=== PATIENT | male | born 1955 | race Caucasian/White ===

== ENCOUNTER 2021-12-14 16:54 | Observation (INO) ==
[2021-12-14 18:59] LABS: BASOPHILS % (AUTO) 0.3 % (0.2-1.0); EOSINOPHILS # (AUTO) 0.1 x10^3/uL (0.0-0.2); EOSINOPHILS % (AUTO) 1.7 % (0.9-2.9); HEMATOCRIT 44.9 % (42.0-54.0); HEMOGLOBIN 14.8 g/dL (13.5-18.0); LYMPHOCYTES # (AUTO) 0.9 X10^3/uL (1.3-2.9); LYMPHOCYTES % (AUTO) 11.8 % (21.0-51.0); MEAN CORPUSCULAR HEMOGLOBIN 27.3 pg (27.0-34.0); MEAN CORPUSCULAR VOLUME 82.8 fL (80.0-100.0); MEAN PLATELET VOLUME 9.7 fL (7.4-11.0); MONOCYTES # (AUTO) 0.7 x10^3/uL (0.3-0.8); NEUTROPHILS % (AUTO) 77.2 % (42.0-75.0); RED BLOOD COUNT 5.42 X10^6/uL (4.7-6.0); RED CELL DISTRIBUTION WIDTH 17.3 % (11.6-16.5); WHITE BLOOD COUNT 7.8 X10^3/uL (3.6-10.0)
[2021-12-14 19:09] LABS: ALANINE AMINOTRANSFERASE 24 Units/L (12-78); ALBUMIN 3.3 g/dL (3.4-5.0); ALKALINE PHOSPHATASE 73 Units/L (46-116); ASPARTATE AMINO TRANSFERASE 15 Units/L (15-37); BLOOD UREA NITROGEN 19 mg/dL (7-18); CALCIUM 8.3 mg/dL (8.5-10.1); CARBON DIOXIDE 25.9 mmol/L (21-32); CHLORIDE 105 mmol/L (98-107); COR CA(FOR HYPOALB) 8.9 mg/dL (8.5-10.1); CREATININE 1.34 mg/dL (0.70-1.30); SODIUM 140 mmol/L (136-145); TOTAL PROTEIN 6.1 g/dL (6.4-8.2); eGFR NON BLACK RACES 57 (>60)
[2021-12-14 19:13] LABS: GIANT PLATELET RARE; PLATELET MORPHOLOGY COMMENT ABNORMAL (NORMAL)
--- NOTE | 2021-12-14 19:47 | DR.GENAD ---
HPI Time Seen Time Seen by Provider: 12/14/21 19:21 PCP Primary Care Physician: Dr Montelongo HPI Comment HPI Comment: A 66 y/o male presenting to the ED for evaluation worsening pedal edema and DACOSTA. This has been going on for some time and he on diuretics. He saw his PCP yesterday and he was asked to double his Lasix dose. There was conversation that if not better by 12/29/2021, he may be hospitalized for diuresis. Complaint/Symptoms Chief Complaint:: Pt here with edema to lower extremities that started earlier today; pt said he was told by Dr Montelongo yesterday to increase his lasix to 40mg/day and drink 1000ml/day but he cannot drink that much and now it is causing his legs to swell and making him feel SOB. COVID-19 Coronavirus risk:travel/contact w/high risk person: No Has patient experienced Coronavirus symptoms: Yes Coronavirus symptoms experienced: Shortness of Breath Nurses notes reviewed Nurses Notes Review: Yes Source History Provided: Patient Mode of Arrival Mode of Arrival: Ambulatory Timing Onset of Chief Complaint: 12/14/21 Came on: Gradually Duration Duration: Constant PMH PMH Past Medical History: Yes Past Medical History: CHF and Hypertension Past Medical History Comment: atrial fibrillation Past Surgical History: Yes Past Surgical History Comment: pacemaker Family History History of Family Medical Conditions: Yes Family Medical History: Hypertension Social History Alcohol Use: None Do you use any recreational Drugs:: No Lives With: Spouse Lives Where: Home Travel Risk Coronavirus risk:travel/contact w/high risk person: No Has patient experienced Coronavirus symptoms: Yes Coronavirus symptoms experienced: Shortness of Breath Infectious screening In the last 2 months have you had wt loss of >10#?: NO Have you had fever, night sweats or hemotysis?: No Have you traveled outside the country in the last 6 months?: No Isolation: Standard ROS Review of Systems Constitutional: No Symptoms Reported Eyes: No Symptoms Reported ENTM: No Symptoms Reported Respiratoy: Short of Breath Cardiovascular: No Symptoms Reported Gastrointestinal/Abdominal: No Symptoms Reported Neurological: No Symptoms Reported Musculoskeletal: No Symptoms Reported Integumentary: No Symptoms Reported Hematologic/Lymphatic: No Symptoms Reported Endocrine: No Symptoms Reported Psychiatric: No Symptoms Reported PE Vital Signs Vitals: Temperature 96.6 F Pulse Rate 112 Respiratory Rate 21 Blood Pressure [Left Arm] 128/92 Blood Pressure 152/105 O2 Sat by Pulse Oximetry 98 General Limitations: No Limitations General Appearance: Alert and In No Apparent Distress Head Head Exam: Normal Inspection, Atraumatic and Normocephalic Eyes Eye exam: Normal Appearance and EOMI ENT ENT Exam: Normal Exam, Normal Oropharynx and Normal External Ear Exam Neck Neck Exam: Normal Inspection and Full ROM Chest Chest Inspection: Normal Inspection, Symmetric Chest Wall Rise and Other ( A PPM inferior to Lt. distal clavicle.) Respiratory Respiratory Exam: Bilateral: Rales (mild) Cardiovascular Cardiovascular Exam: Irregular Rhythm, Normal Heart Sounds, +S1 and +S2 Abdominal Exam Abdominal Exam: Normal Inspection, Normal Bowel Sounds and Soft Extremities Extremities Exam: Full ROM and Edema (2+); negative Normal Inspection, Tende rness, Normal Capillary Refill, Joint Swelling and Calf Tenderness Back Back Exam: Normal Inspection and Full ROM Neurologic Neurological Exam: Alert and Oriented X3 Psychiatric Psychiatric Exam: Normal Affect and Normal Mood Skin Skin Exam: Intact COURSE Treatment Treatment: He's voided 700 ml of urine in response to fluid challenge. Reevaluation 1st: Improved Education/Counseling Education/Counseling: Patient, Family, Education and Counseling Educated On: Treatment, Diagnosis, Prognosis and Needs for Follow Up ROR Labs Reviewed Laboratory Results Reviewed?: Yes Result Diagrams: 12/14/21 18:45 12/14/21 18:45 Laboratory: WBC 7.8 X10^3/uL (3.6-10.0) 12/14/21 18:45 RBC 5.42 X10^6/uL (4.7-6.0) 12/14/21 18:45 Hgb 14.8 g/dL (13.5-18.0) 12/14/21 18:45 Hct 44.9 % (42.0-54.0) 12/14/21 18:45 MCV 82.8 fL (80.0-100.0) 12/14/21 18:45 MCH 27.3 pg (27.0-34.0) 12/14/21 18:45 MCHC 33.0 g/dL (33.0-35.0) 12/14/21 18:45 RDW 17.3 % (11.6-16.5) H 12/14/21 18:45 Plt Count 233 X10^3/uL (150.0-450.0) 12/14/21 18:45 Plt Count Comment Adequate (ADEQUATE) 12/14/21 18:45 MPV 9.7 fL (7.4-11.0) 12/14/21 18:45 Neut % (Auto) 77.2 % (42.0-75.0) H 12/14/21 18:45 Lymph % (Auto) 11.8 % (21.0-51.0) L 12/14/21 18:45 [place] % (Auto) 9.0 % (0.0-13.0) 12/14/21 18:45 Eos % (Auto) 1.7 % (0.9-2.9) 12/14/21 18:45 Baso % (Auto) 0.3 % (0.2-1.0) 12/14/21 18:45 Neut # (Auto) 6.0 x10^3/uL (2.2-4.8) H 12/14/21 18:45 Lymph # (Auto) 0.9 X10^3/uL (1.3-2.9) L 12/14/21 18:45 [place] # (Auto) 0.7 x10^3/uL (0.3-0.8) 12/14/21 18:45 Eos # (Auto) 0.1 x10^3/uL (0.0-0.2) 12/14/21 18:45 Baso # (Auto) 0.0 X10^3/uL (0.0-0.1) 12/14/21 18:45 Absolute Nucleated RBC 0.1 /100WBC 12/14/21 18:45 Giant Platelets Rare 12/14/21 18:45 Plt Morphology Comment Abnormal (NORMAL) 12/14/21 18:45 RBC Morphology Normal (NORMAL) 12/14/21 18:45 Sodium 140 mmol/L (136-145) 12/14/21 18:45 Corrected Sodium TNP 12/14/21 18:45 Potassium 4.0 mmol/L (3.5-5.1) 12/14/21 18:45 Chloride 105 mmol/L (98-107) 12/14/21 18:45 Carbon Dioxide 25.9 mmol/L (21-32) 12/14/21 18:45 BUN 19 mg/dL (7-18) H 12/14/21 18:45 Creatinine 1.34 mg/dL (0.70-1.30) H 12/14/21 18:45 Est GFR (MDRD) Af Amer > 60 (>60) 12/14/21 18:45 Est GFR (MDRD) Non-Af 57 (>60) L 12/14/21 18:45 Glucose 92 mg/dL (65-99) 12/14/21 18:45 Calcium 8.3 mg/dL (8.5-10.1) L 12/14/21 18:45 Corrected Calcium 8.9 mg/dL (8.5-10.1) 12/14/21 18:45 Total Bilirubin 0.80 mg/dL (0.2-1.0) 12/14/21 18:45 AST 15 Units/L (15-37) 12/14/21 18:45 ALT 24 Units/L (12-78) 12/14/21 18:45 Alkaline Phosphatase 73 Units/L (46-116) 12/14/21 18:45 B-Natriuretic Peptide 776 pg/mL (0-79) H* 12/14/21 18:45 Total Protein 6.1 g/dL (6.4-8.2) L 12/14/21 18:45 Albumin 3.3 g/dL (3.4-5.0) L 12/14/21 18:45 Globulin 2.8 g/dL (2.5-4.5) 12/14/21 18:45 Albumin/Globulin Ratio 1.2 Ratio (1.1-2.1) 12/14/21 18:45 XRAY XRAY Interpreted by: Self X-ray Results: CXR: cardiomegaly, mild cephalization. A PPM present in Lt chest with leads into RV. Opioid Opioid Risk Tool Age (Jefry box if 16-45): No History of Preadolescent Sexual Abuse: No Total: 0 Total Score Risk Category: Low Risk Copyright: Marquis DONNELLY predicting aberrant behaviors Diagnosis Discharge Problem: Benign essential HTN, COPD (chronic obstructive pulmonary disease) with chronic bronchitis CHF exacerbation Qualifiers: Heart failure type: unspecified Qualified Code(s): I50.9 - Heart failure, unspecified Atrial fibrillation Qualifiers: Atrial fibrillation type: longstanding persistent Qualified Code(s): I48.11 - Longstanding persistent atrial fibrillation
[2021-12-14] MEDS ORDERED: LASIX IVP ONE ×2 (20:24→20:30)
[2021-12-14] MEDS ORDERED: LASIX ONE (20:30)
[2021-12-14] MEDS ORDERED: VITAMIN D (1.25MG) PO SCH (21:38)
[2021-12-14] MEDS ORDERED: CATAPRES TAB 0.1 MG PO PRN (21:38)
--- NOTE | 2021-12-14 21:56 | RAD ---
EXAM: CHEST X-RAYHISTORY: Edema in the lower extremities. Shortness of breath.TECHNIQUE: AP CXR dated December 14, 2021 at 6:53 PM.COMPARISON: CXR dated May 05, 2021.FINDINGS:There is a left anterior chest wall subclavian cardiac pacer with intact pacer wires to the right atrium and right ventricle. There is evidence for moderate cardiomegaly.The pulmonary vascularity and interstitial markings are diffusely prominent, particularly in the left midlung lower lung rucker, consistent with minimal CHF or volume overload in the appropriate clinical setting; DDx includes residual parenchymal fibrosis/scarring (from previously seen infiltrate in this region), and mild bronchitis or bronchopneumonia in the appropriate clinical setting.There is no gross focal lung consolidation, pleural effusion, or pneumothorax seen. The visualized bony structures are within normal limits.IMPRESSION:1. Findings consistent with minimal CHF or volume overload in the appropriate clinical setting; DDx includes residual parenchymal fibrosis/scarring (from previously seen infiltrate in this region), and mild bronchitis or bronchopneumonia in the appropriate clinical setting.2. Interval resolution of previously seen peripheral right lung infiltrate.3. Recommend clinical correlation and appropriate follow-up CXR evaluation to assess interval change as clinically warranted.Electronically signed by: Aung Lopez (Dec 14, 2021 21:54:33)
[2021-12-14 22:33] VITALS: BMI 31.6
[2021-12-14] MEDS ORDERED: PREVNAR 13 IM ONE (22:35)
[2021-12-14 22:39] LABS: BILIRUBIN,URINE NEGATIVE (NEGATIVE); BLOOD/HEMOGLOBIN,URINE NEGATIVE (NEGATIVE); GLUCOSE, URINE NEGATIVE (NEGATIVE); KETONES,URINE NEGATIVE (NEGATIVE); LEUKOCYTE ESTERASE ,URINE NEGATIVE (NEGATIVE); NITRITES,URINE NEGATIVE (NEGATIVE); PROTEIN,URINE NEGATIVE (NEGATIVE); UROBILINOGEN,URINE NORMAL (NORMAL)
[2021-12-14 22:42] LABS: APPEARANCE,URINE CLEAR (CLEAR); COLOR,URINE STRAW (YELLOW)
--- NOTE | 2021-12-15 05:30 | RAD ---
PROCEDURE: Chest X-ray 1 View .HISTORY: Dyspnea.TECHNIQUE: AP portable supine done at 4:56 a.m..COMPARISON: 12/14/2021.TECHNICAL QUALITY: Satisfactory .FINDINGS:Unchanged cardiomegaly with pacemaker on the left.Mediastinum and hilar regions show no masses or lymphadenopathy .Normal central vascularity .No pulmonary consolidation, masses, pleural fluid, or pneumothorax .No acute bony abnormality .IMPRESSION:Unchanged cardiomegaly with no other evidence of active disease.Electronically signed by: Shaun Jones (Dec 15, 2021 05:30:11)
[2021-12-15 05:49] LABS: BASOPHILS # (AUTO) 0.1 X10^3/uL (0.0-0.1); BASOPHILS % (AUTO) 0.9 % (0.2-1.0); EOSINOPHILS # (AUTO) 0.2 x10^3/uL (0.0-0.2); EOSINOPHILS % (AUTO) 3.1 % (0.9-2.9); HEMATOCRIT 42.1 % (42.0-54.0); HEMOGLOBIN 14.1 g/dL (13.5-18.0); LYMPHOCYTES # (AUTO) 1.3 X10^3/uL (1.3-2.9); LYMPHOCYTES % (AUTO) 17.8 % (21.0-51.0); MEAN CORPUSCULAR HEMOGLOBIN 27.3 pg (27.0-34.0); MEAN CORPUSCULAR HGB CONC 33.4 g/dL (33.0-35.0); MEAN CORPUSCULAR VOLUME 81.7 fL (80.0-100.0); MEAN PLATELET VOLUME 9.8 fL (7.4-11.0); MONOCYTES # (AUTO) 0.8 x10^3/uL (0.3-0.8); MONOCYTES % (AUTO) 11.2 % (0.0-13.0); NEUTROPHILS # (AUTO) 4.8 x10^3/uL (2.2-4.8); RED BLOOD COUNT 5.15 X10^6/uL (4.7-6.0); RED CELL DISTRIBUTION WIDTH 17.4 % (11.6-16.5); WHITE BLOOD COUNT 7.1 X10^3/uL (3.6-10.0)
[2021-12-15 06:01] LABS: ALANINE AMINOTRANSFERASE 19 Units/L (12-78); ALBUMIN 2.9 g/dL (3.4-5.0); ALKALINE PHOSPHATASE 67 Units/L (46-116); ASPARTATE AMINO TRANSFERASE 15 Units/L (15-37); BLOOD UREA NITROGEN 17 mg/dL (7-18); CARBON DIOXIDE 27.4 mmol/L (21-32); CHLORIDE 106 mmol/L (98-107); COR CA(FOR HYPOALB) 8.9 mg/dL (8.5-10.1); CREATININE 1.28 mg/dL (0.70-1.30); SODIUM 140 mmol/L (136-145); TOTAL PROTEIN 5.5 g/dL (6.4-8.2); eGFR NON BLACK RACES 60 (>60)
[2021-12-15] MEDS ORDERED: POTASSIUM CHLORIDE LIQ 20 MEQ UDC PO PRN ×2 (06:05→08:35)
[2021-12-15] MEDS ORDERED: K-RIDER 10 MEQ/NS 100 ML 10 MEQ/100 ML BAG IV PRN ×2 (06:05→08:35)
[2021-12-15] MEDS ORDERED: MICRO K EXTEN CAP 10 MEQ PO PRN ×2 (06:05→08:35)
[2021-12-15] MEDS ORDERED: KLOR-CON PO PRN ×2 (06:05→08:35)
[2021-12-15] MEDS ORDERED: POTASSIUM CHL 60 MEQ/NS 0.45% 500 ML IV PRN ×2 (06:05→08:35)
[2021-12-15] MEDS ORDERED: POTASSIUM CHL 40 MEQ/NS 0.45% 500 ML IV PRN ×2 (06:05→08:35)
[2021-12-15] MEDS ORDERED: K-DUR TAB 20 MEQ PO PRN ×2 (06:05→08:35)
[2021-12-15] MEDS: LASIX IVP SCH ×2 (10:07→16:34)
[2021-12-15] MEDS: COZAAR PO SCH (10:11)
[2021-12-15] MEDS: BETAPACE AF PO SCH ×2 (10:11→21:46)
[2021-12-15] MEDS: ELIQUIS PO SCH ×2 (10:11→21:46)
[2021-12-15] MEDS: ALBUMIN HUMAN 25%- 100 ML 100 ML IV SCH (10:11)
[2021-12-15] MEDS ORDERED: NS 100 ML IV 100 ML ONE (10:16)
--- NOTE | 2021-12-15 11:12 | DR.H&P ---
H&P - History & Physical for Day of: H&P Date: 12/14/21 - Chief Complaint Chief Complaint: SOB, LOWER EXTREMITY SWELLING - History of Present Illness History of Present Illness: IS A 66 YEAR OLD PATIENT OF OURS. HE PRESENTED TO THE ER WITH COMPLAINTS OF WORSENING SHORTNESS OF BREATH AND LOWER EXTREMITY SWELLING. HE WAS SEEN IN THE OFFICE ON SUNDAY AND WAS INSTRUCTED TO INCREASE LASIX TO 40MG BID. HE DENIES IMPROVEMENT IN SYMPTOMS SINCE INCREASING LASIX. EXAMINATION REVEALED 3+ PITTING EDEMA TO BILATERAL LOWER EXTREMITIES. AUSCULTATION OF LUNGS REVEALED SCATTERED LUNG SOUNDS THROUGHOUT. HIS PMH INCLUDES CHF, HTN, COPD, A-FIB, AND PACEMAKER. ON ARRIVAL TO THE HOSPTIAL, VITALS WERE 96.6-112-21-98%-152/95. LABS WERE OBTAINED. WBC 7.8, HGB 14.8, HCT 44.9, SODIUM 140, POTASSIUM 4.0, BUN 19, CREATININE 1.34, CALCIUM 8.3, GLUCOSE 92, AST 15, ALT 24, ALK PHOS 73, BNP 776, TOTAL PROTEIN 6.1, ALBUMIN 3.3. A CHEST XRAY WAS OBTAINED AND REVEALED: 1. Findings consistent with minimal CHF or volume overload in the appropriate clinical setting; DDx includes residual parenchymal fibrosis/scarring (from previously seen infiltrate in this region), and mild bronchitis or bronchopneumonia in the appropriate clinical setting. 2. Interval resolution of previously seen peripheral right lung infiltrate. 3. Recommend clinical correlation and appropriate follow-up CXR evaluation to assess interval change as clinically warranted. IN THE ER, HE WAS GIVEN LASIX 60MG IV X 1 DOSE. HE WAS ADMITTED TO THE HOSPITAL OBSERVATION STATUS FOR FURTHER EVALUATION AND TREATMENT OF DECOMPENSATED CHF, A-FIB, HTN, COPD. HE WAS STARTED ON LASIX 40MG IV BID, ALBUMIN 25% IV DAILY, AND HIS HOME MEDICATIONS OF ELIQUIS, CATAPRES, VITAMIN D, COZAAR, AND BETAPACE WERE RESUMED. WE WILL OBTAIN AN ECHOCARDIOGRAM. OTHERWISE, WE PLAN TO FOLLOW-UP WITH AM LABS AND CHEST XRAY AND CONTINUE TO MONITOR. TIME SPENT ON CLINICAL ASSESSMENT, REVIEWING LABS AND IMAGING, DECISION MAKING, AND DOCUMENTATION GREATER THAN 75 MINUTES. - Past Medical History Past Medical History: CHF, COPD, Hypertension Additional Medical History: A-FIB - Past Surgical History Surgical History: Abdominal Surgery, Cholecystectomy, Other - Family History Family Medical History: Cancer, [place], Hypertension - Social History Does patient currently use any type of tobacco product: No Have you used tobacco products in the last 12 months: No Type of Tobacco Use: None Alcohol Use: None Drug Use: None - Medications Home Medications: No Known Drug Allergies Allergy (Verified 12/14/21 17:21) CONTINUE taking the following medications apixaban [Eliquis] 5 mg PO BID 12/14/21 [History] clonidine HCl 0.1 mg PO DAILY PRN 12/14/21 [History] ergocalciferol (vitamin D2) 1,250 mcg PO WEEKLY 12/14/21 [History] furosemide 20 mg PO BID 12/14/21 [History] losartan 100 mg PO DAILY 12/14/21 [History] sotalol 80 mg PO BID 12/14/21 [History] umeclidinium-vilanterol [Anoro Ellipta] 1 inh INHALATION DAILY 12/14/21 [History] - Review of Systems Constitutional: Weakness Eyes: No Symptoms Reported ENT: No Symptoms Reported Respiratory: See HPI, Shortness of Breath, SOB with Excertion Cardiovascular: Edema (BLE SWELLING ) Gastrointestinal: No Symptoms Reported Genitourinary: No Symptoms Reported Musculoskeletal: No Symptoms Reported Skin: No Symptoms Reported Neurological: Weakness - Physical Exam Vital Signs: Temperature 97.7 F Pulse Rate [Left Radial] 92 Pulse Rate 114 Respiratory Rate 20 Blood Pressure [Left Arm] 117/77 Blood Pressure 152/105 O2 Sat by Pulse Oximetry 94 Oriented: Normal Eyes: Normal Ear: Normal Nose: Normal Throat: Normal Respiratory: Diminished Throughout Cardiovascular: Edema (BLE 3+ PITTING EDEMA ) : Normal Auscultation: Bowel Sounds: Normal Palpation: Normal Tenderness: Normal Skin: Normal Musculoskeletal: Normal Psychiatric: Normal Mood Description: Calm Affect: Normal Speech Pattern: Clear - Assessment/Plan (1) CHF exacerbation Qualifiers: Heart failure type: unspecified Qualified Code(s): I50.9 - Heart failure, unspecified Status: Acute Plan: ADMIT, LASIX 40MG IV BID, ALBUMIN 25% IV DAILY, AND HIS HOME MEDICATIONS OF ELIQUIS, CATAPRES, VITAMIN D, COZAAR, AND BETAPACE WERE RESUMED. OBTAIN ECHO (2) Atrial fibrillation Qualifiers: Atrial fibrillation type: longstanding persistent Qualified Code(s): I48.11 - Longstanding persistent atrial fibrillation Status: Chronic (3) Benign essential HTN Status: Chronic (4) COPD (chronic obstructive pulmonary disease) with chronic bronchitis Status: Chronic - Allergies Allergies/Adverse Reactions: Allergies Allergy/AdvReac Type Severity Reaction Status Date / Time No Known Drug Allergies Allergy Verified 12/14/21 17:21
[2021-12-15] MEDS: MAGNESIUM SULFATE 1 GRAM/100 mL PREMIX 1 G/100 ML BAG IV PRN ×2 (11:25→21:47)
[2021-12-16 04:42] LABS: BASOPHILS % (AUTO) 0.2 % (0.2-1.0); EOSINOPHILS # (AUTO) 0.3 x10^3/uL (0.0-0.2); EOSINOPHILS % (AUTO) 3.5 % (0.9-2.9); HEMATOCRIT 43.1 % (42.0-54.0); HEMOGLOBIN 14.3 g/dL (13.5-18.0); LYMPHOCYTES # (AUTO) 1.4 X10^3/uL (1.3-2.9); MEAN CORPUSCULAR HEMOGLOBIN 26.9 pg (27.0-34.0); MEAN CORPUSCULAR HGB CONC 33.1 g/dL (33.0-35.0); MEAN CORPUSCULAR VOLUME 81.3 fL (80.0-100.0); MEAN PLATELET VOLUME 10.2 fL (7.4-11.0); MONOCYTES # (AUTO) 0.8 x10^3/uL (0.3-0.8); MONOCYTES % (AUTO) 10.3 % (0.0-13.0); NEUTROPHILS # (AUTO) 5.3 x10^3/uL (2.2-4.8); RED BLOOD COUNT 5.31 X10^6/uL (4.7-6.0); RED CELL DISTRIBUTION WIDTH 17.1 % (11.6-16.5); WHITE BLOOD COUNT 7.8 X10^3/uL (3.6-10.0)
[2021-12-16 04:54] LABS: GIANT PLATELET RARE; PLATELET MORPHOLOGY COMMENT ABNORMAL (NORMAL)
[2021-12-16 04:58] LABS: ALANINE AMINOTRANSFERASE 23 Units/L (12-78); ALBUMIN 3.4 g/dL (3.4-5.0); ALKALINE PHOSPHATASE 70 Units/L (46-116); ASPARTATE AMINO TRANSFERASE 14 Units/L (15-37); BLOOD UREA NITROGEN 23 mg/dL (7-18); CALCIUM 8.6 mg/dL (8.5-10.1); CARBON DIOXIDE 26.1 mmol/L (21-32); CHLORIDE 106 mmol/L (98-107); CREATININE 1.31 mg/dL (0.70-1.30); MAGNESIUM 2.2 mg/dL (1.7-2.9); SODIUM 140 mmol/L (136-145); eGFR NON BLACK RACES 58 (>60)
[2021-12-16] MEDS: BETAPACE AF PO SCH (09:07)
[2021-12-16] MEDS: ALBUMIN HUMAN 25%- 100 ML 100 ML IV SCH (09:07)
[2021-12-16] MEDS: COZAAR PO SCH (09:07)
[2021-12-16] MEDS: ELIQUIS PO SCH (09:07)
[2021-12-16] MEDS: LASIX IVP SCH (09:08)
--- NOTE | 2021-12-16 09:31 | W.DIS.FURT ---
Summary of Discharge Admission Diagnosis Patient Problems (Updated 12/15/21 @ 11:15 by Sinan Montelongo) CHF exacerbation (Acute) I50.9 Atrial fibrillation (Chronic) I48.91 Benign essential HTN (Chronic) I10 COPD (chronic obstructive pulmonary disease) with chronic bronchitis (Chronic) J44.9 Vital Signs: Vital Signs (72 hours) 12/14/21 17:10 12/14/21 21:00 12/14/21 21:35 Temperature 96.6 F L 97.8 F Pulse Rate 112 H Pulse Rate [Left Radial] 112 H Respiratory Rate 21 20 Blood Pressure 152/105 Blood Pressure [Left Arm] 128/92 145/82 O2 Sat by Pulse Oximetry 98 98 95 12/14/21 22:00 12/14/21 23:46 12/15/21 04:00 Temperature 97.6 F 97.8 F Pulse Rate 114 H Pulse Rate [Left Radial] 112 H 96 H Respiratory Rate 23 23 Blood Pressure Blood Pressure [Left Arm] 115/74 114/79 O2 Sat by Pulse Oximetry 95 95 95 12/15/21 08:00 12/15/21 12:00 12/15/21 16:36 Temperature 97.7 F 97.8 F 97.9 F Pulse Rate Pulse Rate [Left Radial] 92 H 88 86 Respiratory Rate 20 20 20 Blood Pressure Blood Pressure [Left Arm] 117/77 117/81 115/85 O2 Sat by Pulse Oximetry 94 L 98 95 12/15/21 20:00 12/16/21 00:00 12/16/21 04:00 Temperature 98.2 F 98.3 F 97.6 F Pulse Rate Pulse Rate [Left Radial] 77 79 87 Respiratory Rate 20 18 18 Blood Pressure Blood Pressure [Left Arm] 117/75 111/59 118/78 O2 Sat by Pulse Oximetry 95 97 95 Labs: Laboratory Last Values WBC 7.8 X10^3/uL (3.6-10.0) 12/16/21 03:55 RBC 5.31 X10^6/uL (4.7-6.0) 12/16/21 03:55 Hgb 14.3 g/dL (13.5-18.0) 12/16/21 03:55 Hct 43.1 % (42.0-54.0) 12/16/21 03:55 MCV 81.3 fL (80.0-100.0) 12/16/21 03:55 MCH 26.9 pg (27.0-34.0) L 12/16/21 03:55 MCHC 33.1 g/dL (33.0-35.0) 12/16/21 03:55 RDW 17.1 % (11.6-16.5) H 12/16/21 03:55 Plt Count 228 X10^3/uL (150.0-450.0) 12/16/21 03:55 Plt Count Comment Adequate (ADEQUATE) 12/16/21 03:55 MPV 10.2 fL (7.4-11.0) 12/16/21 03:55 Neut % (Auto) 68.0 % (42.0-75.0) 12/16/21 03:55 Lymph % (Auto) 18.0 % (21.0-51.0) L 12/16/21 03:55 [place] % (Auto) 10.3 % (0.0-13.0) 12/16/21 03:55 Eos % (Auto) 3.5 % (0.9-2.9) H 12/16/21 03:55 Baso % (Auto) 0.2 % (0.2-1.0) 12/16/21 03:55 Neut # (Auto) 5.3 x10^3/uL (2.2-4.8) H 12/16/21 03:55 Lymph # (Auto) 1.4 X10^3/uL (1.3-2.9) 12/16/21 03:55 [place] # (Auto) 0.8 x10^3/uL (0.3-0.8) 12/16/21 03:55 Eos # (Auto) 0.3 x10^3/uL (0.0-0.2) H 12/16/21 03:55 Baso # (Auto) 0.0 X10^3/uL (0.0-0.1) 12/16/21 03:55 Absolute Nucleated RBC 0.1 /100WBC 12/16/21 03:55 Giant Platelets Rare 12/16/21 03:55 Plt Morphology Comment Abnormal (NORMAL) 12/16/21 03:55 RBC Morphology Normal (NORMAL) 12/16/21 03:55 Sodium 140 mmol/L (136-145) 12/16/21 03:55 Corrected Sodium TNP 12/16/21 03:55 Potassium 3.8 mmol/L (3.5-5.1) 12/16/21 03:55 Chloride 106 mmol/L (98-107) 12/16/21 03:55 Carbon Dioxide 26.1 mmol/L (21-32) 12/16/21 03:55 BUN 23 mg/dL (7-18) H 12/16/21 03:55 Creatinine 1.31 mg/dL (0.70-1.30) H 12/16/21 03:55 Est GFR (MDRD) Af Amer > 60 (>60) 12/16/21 03:55 Est GFR (MDRD) Non-Af 58 (>60) L 12/16/21 03:55 Glucose 110 mg/dL (65-99) H 12/16/21 03:55 Calcium 8.6 mg/dL (8.5-10.1) 12/16/21 03:55 Corrected Calcium TNP 12/16/21 03:55 Magnesium 2.2 mg/dL (1.7-2.9) 12/16/21 03:55 Total Bilirubin 0.70 mg/dL (0.2-1.0) 12/16/21 03:55 AST 14 Units/L (15-37) L 12/16/21 03:55 ALT 23 Units/L (12-78) 12/16/21 03:55 Alkaline Phosphatase 70 Units/L (46-116) 12/16/21 03:55 B-Natriuretic Peptide 681 pg/mL (0-79) H* 12/15/21 05:15 Total Protein 6.0 g/dL (6.4-8.2) L 12/16/21 03:55 Albumin 3.4 g/dL (3.4-5.0) 12/16/21 03:55 Globulin 2.6 g/dL (2.5-4.5) 12/16/21 03:55 Albumin/Globulin Ratio 1.3 Ratio (1.1-2.1) 12/16/21 03:55 Specimen Type Clean catch urine 12/14/21 22:22 Urine Color Straw (YELLOW) 12/14/21 22:22 Urine Appearance Clear (CLEAR) 12/14/21 22:22 Urine pH 6.0 (5.0 - 8.0) 12/14/21 22:22 Ur Specific [place] 1.015 (1.000-1.030) 12/14/21 22:22 Urine Protein Negative (NEGATIVE) 12/14/21 22:22 Urine Glucose (UA) Negative (NEGATIVE) 12/14/21 22:22 Urine Ketones Negative (NEGATIVE) 12/14/21 22:22 Urine Blood Negative (NEGATIVE) 12/14/21 22:22 Urine Nitrite Negative (NEGATIVE) 12/14/21 22:22 Urine Bilirubin Negative (NEGATIVE) 12/14/21 22:22 Urine Urobilinogen Normal (NORMAL) 12/14/21 22:22 Ur Leukocyte Esterase Negative (NEGATIVE) 12/14/21 22:22 SARS-CoV-2 (PCR) Negative (NEGATIVE) 12/14/21 20:47 Reason For Visit: DECOMP, CHF, AFIB,HTN, COPD Discharge Diagnosis All Active Problems (Updated 12/15/21 @ 11:15 by Sinan Montelongo) CHF exacerbation (Acute) Atrial fibrillation (Chronic) Benign essential HTN (Chronic) COPD (chronic obstructive pulmonary disease) with chronic bronchitis (Chronic) Plan of Treatment: Continue with present treatment and follow up plan. Pt is to keep follow up appointment as instructed and take medications as ordered. Discharge Medications Discharge Medications: No Known Drug Allergies Allergy (Verified 12/14/21 17:21) CONTINUE taking the following medications Anoro Ellipta 1 inh INHALATION DAILY 12/14/21 [History] Eliquis 5 mg PO BID 12/14/21 [History] clonidine HCl 0.1 mg PO DAILY PRN 12/14/21 [History] ergocalciferol (vitamin D2) 1,250 mcg PO WEEKLY 12/14/21 [History] losartan 100 mg PO DAILY 12/14/21 [History] sotalol 80 mg PO BID 12/14/21 [History] New Prescriptions furosemide 40 mg PO BID 30 Days #60 tab 12/16/21 [Rx] potassium chloride 10 meq PO DAILY 30 Days #30 tab 12/16/21 [Rx] Discharge Plan Discharge Plan Patient Disposition: 01 HOME, SELF-CARE Condition: Stable Health Concerns: Post Hospitalization: new medications and changes needed to prevent readmission or further decline. Pt educated and given instructions on all concerns. Plan of Treatment: Continue with present treatment and follow up plan. Pt is to keep follow up appointment as instructed and take medications as ordered. Prescriptions: New furosemide 40 mg tablet 40 mg PO BID 30 Days Qty: 60 RF: 1 potassium chloride 10 mEq tablet extended release 10 meq PO DAILY 30 Days Qty: 30 RF: 1 Continued clonidine HCl 0.1 mg tablet 0.1 mg PO DAILY PRN (Reason: Hypertension) RF: 0 sotalol 80 mg tablet 80 mg PO BID RF: 0 ergocalciferol (vitamin D2) 1,250 mcg (50,000 unit) capsule 1,250 mcg PO WEEKLY RF: 0 losartan 100 mg tablet 100 mg PO DAILY RF: 0 Eliquis 5 mg tablet 5 mg PO BID RF: 0 Anoro Ellipta 62.5-25 mcg/actuation blister with device 1 inh INHALATION DAILY RF: 0 Discontinued furosemide 20 mg tablet 20 mg PO BID RF: 0 Orders to Discharge Patient Discharge Orders: Discharge (Routine); Ordered 12/16/21 Ordered By: Fidelina Sullivan Follow ups/Referrals Follow ups/Referrals: Sinan Montelongo [Primary Care Provider] - 3 days Instructions Activity Restrictions/Additional Instructions: Patient needs a f/u with cardiology in 1 week. Stand Alone Forms: Excuse From Work or School, Precautions for COVID, [facility], Patient Portal, Social Distancing
[2021-12-16 12:25] VITALS: BP 116/77
--- NOTE | 2021-12-16 12:41 | PCM.PROG ---
Progress Note Progress Note for Day of Date of Exam: 12/16/21 Subjective Subjective: Patient seen at bedside, no events overnight. He states he feels better, still has leg edema. He has been admitted for CHF exacerbation. ECHO showed EF 38% with moderate global wall motion abnormalities. He has been getting IV lasix. He sees cardiology from [facility]. Labs/imaging reviewed Plan: Past Medical Family Social History Allergies: Allergies No Known Drug Allergies Allergy (Verified 12/14/21 17:21) Vital Signs and I&O's Vital Signs: Temperature 97.9 F Pulse Rate [Left Radial] 98 Pulse Rate 114 Respiratory Rate 22 Blood Pressure [Left Arm] 116/77 Blood Pressure 152/105 O2 Sat by Pulse Oximetry 94 Intake and Output: Intake & Output 12/13/21 12/14/21 12/15/21 12/16/21 23:59 23:59 23:59 23:59 Intake Total 992 / 992 2807 / 3912 195 / 195 Output Total 2500 / 2600 2875 / 2875 870 / 870 Balance -1508 / -1608 -68 / 1037 1086 / 1086 Physical Exam Oriented: Normal Eyes: Normal Ear: Normal Nose: Normal Throat: Normal Cardiovascular: Edema (BLE 3+ PITTING EDEMA ) : Normal Auscultation: Bowel Sounds: Normal Tenderness: Normal Skin: Normal Musculoskeletal: Normal Psychiatric: Normal Mood Description: Calm Affect: Normal Speech Pattern: Clear and Appropriate Laboratory and Diagnostics Result Diagrams: 12/16/21 03:55 12/16/21 03:55 Labs: Laboratory WBC 7.8 X10^3/uL (3.6-10.0) 12/16/21 03:55 RBC 5.31 X10^6/uL (4.7-6.0) 12/16/21 03:55 Hgb 14.3 g/dL (13.5-18.0) 12/16/21 03:55 Hct 43.1 % (42.0-54.0) 12/16/21 03:55 MCV 81.3 fL (80.0-100.0) 12/16/21 03:55 MCH 26.9 pg (27.0-34.0) L 12/16/21 03:55 MCHC 33.1 g/dL (33.0-35.0) 12/16/21 03:55 RDW 17.1 % (11.6-16.5) H 12/16/21 03:55 Plt Count 228 X10^3/uL (150.0-450.0) 12/16/21 03:55 Plt Count Comment Adequate (ADEQUATE) 12/16/21 03:55 MPV 10.2 fL (7.4-11.0) 12/16/21 03:55 Neut % (Auto) 68.0 % (42.0-75.0) 12/16/21 03:55 Lymph % (Auto) 18.0 % (21.0-51.0) L 12/16/21 03:55 [place] % (Auto) 10.3 % (0.0-13.0) 12/16/21 03:55 Eos % (Auto) 3.5 % (0.9-2.9) H 12/16/21 03:55 Baso % (Auto) 0.2 % (0.2-1.0) 12/16/21 03:55 Neut # (Auto) 5.3 x10^3/uL (2.2-4.8) H 12/16/21 03:55 Lymph # (Auto) 1.4 X10^3/uL (1.3-2.9) 12/16/21 03:55 [place] # (Auto) 0.8 x10^3/uL (0.3-0.8) 12/16/21 03:55 Eos # (Auto) 0.3 x10^3/uL (0.0-0.2) H 12/16/21 03:55 Baso # (Auto) 0.0 X10^3/uL (0.0-0.1) 12/16/21 03:55 Absolute Nucleated RBC 0.1 /100WBC 12/16/21 03:55 Giant Platelets Rare 12/16/21 03:55 Plt Morphology Comment Abnormal (NORMAL) 12/16/21 03:55 RBC Morphology Normal (NORMAL) 12/16/21 03:55 Sodium 140 mmol/L (136-145) 12/16/21 03:55 Corrected Sodium TNP 12/16/21 03:55 Potassium 3.8 mmol/L (3.5-5.1) 12/16/21 03:55 Chloride 106 mmol/L (98-107) 12/16/21 03:55 Carbon Dioxide 26.1 mmol/L (21-32) 12/16/21 03:55 BUN 23 mg/dL (7-18) H 12/16/21 03:55 Creatinine 1.31 mg/dL (0.70-1.30) H 12/16/21 03:55 Est GFR (MDRD) Af Amer > 60 (>60) 12/16/21 03:55 Est GFR (MDRD) Non-Af 58 (>60) L 12/16/21 03:55 Glucose 110 mg/dL (65-99) H 12/16/21 03:55 Calcium 8.6 mg/dL (8.5-10.1) 12/16/21 03:55 Corrected Calcium TNP 12/16/21 03:55 Magnesium 2.2 mg/dL (1.7-2.9) 12/16/21 03:55 Total Bilirubin 0.70 mg/dL (0.2-1.0) 12/16/21 03:55 AST 14 Units/L (15-37) L 12/16/21 03:55 ALT 23 Units/L (12-78) 12/16/21 03:55 Alkaline Phosphatase 70 Units/L (46-116) 12/16/21 03:55 B-Natriuretic Peptide 681 pg/mL (0-79) H* 12/15/21 05:15 Total Protein 6.0 g/dL (6.4-8.2) L 12/16/21 03:55 Albumin 3.4 g/dL (3.4-5.0) 12/16/21 03:55 Globulin 2.6 g/dL (2.5-4.5) 12/16/21 03:55 Albumin/Globulin Ratio 1.3 Ratio (1.1-2.1) 12/16/21 03:55 Specimen Type Clean catch urine 12/14/21 22:22 Urine Color Straw (YELLOW) 12/14/21 22:22 Urine Appearance Clear (CLEAR) 12/14/21 22:22 Urine pH 6.0 (5.0 - 8.0) 12/14/21 22:22 Ur Specific [place] 1.015 (1.000-1.030) 12/14/21 22:22 Urine Protein Negative (NEGATIVE) 12/14/21 22:22 Urine Glucose (UA) Negative (NEGATIVE) 12/14/21 22:22 Urine Ketones Negative (NEGATIVE) 12/14/21 22:22 Urine Blood Negative (NEGATIVE) 12/14/21 22:22 Urine Nitrite Negative (NEGATIVE) 12/14/21 22:22 Urine Bilirubin Negative (NEGATIVE) 12/14/21 22:22 Urine Urobilinogen Normal (NORMAL) 12/14/21 22:22 Ur Leukocyte Esterase Negative (NEGATIVE) 12/14/21 22:22 SARS-CoV-2 (PCR) Negative (NEGATIVE) 12/14/21 20:47 Plan (1) CHF exacerbation: Status: Acute Qualifiers: Heart failure type: unspecified Qualified Code(s): I50.9 - Heart failure, unspecified Plan: ADMIT, LASIX 40MG IV BID, ALBUMIN 25% IV DAILY, AND HIS HOME MEDICATIONS OF ELIQUIS, CATAPRES, VITAMIN D, COZAAR, AND BETAPACE WERE RESUMED. 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
--- NOTE | 2021-12-16 12:57 | W.DIS.FURT ---
Summary of Discharge Discharge Summary of Date Date of Exam: 12/16/21 Admission Date Date of Admission: 12/14/21 Admission Diagnosis Patient Problems (Updated 12/15/21 @ 11:15 by Sinan Montelongo) CHF exacerbation (Acute) I50.9 Atrial fibrillation (Chronic) I48.91 Benign essential HTN (Chronic) I10 COPD (chronic obstructive pulmonary disease) with chronic bronchitis (Chronic) J44.9 Hospital Course: Mr Patel is a 66y/o male with multiple comobidities including CHF, atrial fibrillation, HTN presented with worsening LE swelling and dyspnea. He was seen in the clinic for similar symptoms and advised to increase lasix. He continued to have worsening SOB and swelling so was admitted for further management. He was started on IV lasix, strict I/Os, telemetry and daily weights. ECHO was done which showed EF 38% with moderate decrease global wall motion. Patient remained on room air. His labs were monitored daily and electrolytes replaced as needed. His leg edema improved and his breathing was better. Patient is already established with cardiology. He was stable for discharge. He will follow up with PCP and cardiology as scheduled. Patient's lasix dose was increased and advised to monitor daily weight and blood pressure. Vital Signs: Vital Signs (72 hours) 12/14/21 17:10 12/14/21 21:00 12/14/21 21:35 Temperature 96.6 F L 97.8 F Pulse Rate 112 H Pulse Rate [Left Radial] 112 H Respiratory Rate 21 20 Blood Pressure 152/105 Blood Pressure [Left Arm] 128/92 145/82 O2 Sat by Pulse Oximetry 98 98 95 12/14/21 22:00 12/14/21 23:46 12/15/21 04:00 Temperature 97.6 F 97.8 F Pulse Rate 114 H Pulse Rate [Left Radial] 112 H 96 H Respiratory Rate 23 23 Blood Pressure Blood Pressure [Left Arm] 115/74 114/79 O2 Sat by Pulse Oximetry 95 95 95 12/15/21 08:00 12/15/21 12:00 12/15/21 16:36 Temperature 97.7 F 97.8 F 97.9 F Pulse Rate Pulse Rate [Left Radial] 92 H 88 86 Respiratory Rate 20 20 20 Blood Pressure Blood Pressure [Left Arm] 117/77 117/81 115/85 O2 Sat by Pulse Oximetry 94 L 98 95 12/15/21 20:00 12/16/21 00:00 12/16/21 04:00 Temperature 98.2 F 98.3 F 97.6 F Pulse Rate Pulse Rate [Left Radial] 77 79 87 Respiratory Rate 20 18 18 Blood Pressure Blood Pressure [Left Arm] 117/75 111/59 118/78 O2 Sat by Pulse Oximetry 95 97 95 12/16/21 08:00 12/16/21 12:00 Temperature 97.5 F L 97.9 F Pulse Rate Pulse Rate [Left Radial] 85 98 H Respiratory Rate 22 22 Blood Pressure Blood Pressure [Left Arm] 120/80 116/77 O2 Sat by Pulse Oximetry 94 L 94 L Labs: Laboratory Last Values WBC 7.8 X10^3/uL (3.6-10.0) 12/16/21 03:55 RBC 5.31 X10^6/uL (4.7-6.0) 12/16/21 03:55 Hgb 14.3 g/dL (13.5-18.0) 12/16/21 03:55 Hct 43.1 % (42.0-54.0) 12/16/21 03:55 MCV 81.3 fL (80.0-100.0) 12/16/21 03:55 MCH 26.9 pg (27.0-34.0) L 12/16/21 03:55 MCHC 33.1 g/dL (33.0-35.0) 12/16/21 03:55 RDW 17.1 % (11.6-16.5) H 12/16/21 03:55 Plt Count 228 X10^3/uL (150.0-450.0) 12/16/21 03:55 Plt Count Comment Adequate (ADEQUATE) 12/16/21 03:55 MPV 10.2 fL (7.4-11.0) 12/16/21 03:55 Neut % (Auto) 68.0 % (42.0-75.0) 12/16/21 03:55 Lymph % (Auto) 18.0 % (21.0-51.0) L 12/16/21 03:55 [place] % (Auto) 10.3 % (0.0-13.0) 12/16/21 03:55 Eos % (Auto) 3.5 % (0.9-2.9) H 12/16/21 03:55 Baso % (Auto) 0.2 % (0.2-1.0) 12/16/21 03:55 Neut # (Auto) 5.3 x10^3/uL (2.2-4.8) H 12/16/21 03:55 Lymph # (Auto) 1.4 X10^3/uL (1.3-2.9) 12/16/21 03:55 [place] # (Auto) 0.8 x10^3/uL (0.3-0.8) 12/16/21 03:55 Eos # (Auto) 0.3 x10^3/uL (0.0-0.2) H 12/16/21 03:55 Baso # (Auto) 0.0 X10^3/uL (0.0-0.1) 12/16/21 03:55 Absolute Nucleated RBC 0.1 /100WBC 12/16/21 03:55 Giant Platelets Rare 12/16/21 03:55 Plt Morphology Comment Abnormal (NORMAL) 12/16/21 03:55 RBC Morphology Normal (NORMAL) 12/16/21 03:55 Sodium 140 mmol/L (136-145) 12/16/21 03:55 Corrected Sodium TNP 12/16/21 03:55 Potassium 3.8 mmol/L (3.5-5.1) 12/16/21 03:55 Chloride 106 mmol/L (98-107) 12/16/21 03:55 Carbon Dioxide 26.1 mmol/L (21-32) 12/16/21 03:55 BUN 23 mg/dL (7-18) H 12/16/21 03:55 Creatinine 1.31 mg/dL (0.70-1.30) H 12/16/21 03:55 Est GFR (MDRD) Af Amer > 60 (>60) 12/16/21 03:55 Est GFR (MDRD) Non-Af 58 (>60) L 12/16/21 03:55 Glucose 110 mg/dL (65-99) H 12/16/21 03:55 Calcium 8.6 mg/dL (8.5-10.1) 12/16/21 03:55 Corrected Calcium TNP 12/16/21 03:55 Magnesium 2.2 mg/dL (1.7-2.9) 12/16/21 03:55 Total Bilirubin 0.70 mg/dL (0.2-1.0) 12/16/21 03:55 AST 14 Units/L (15-37) L 12/16/21 03:55 ALT 23 Units/L (12-78) 12/16/21 03:55 Alkaline Phosphatase 70 Units/L (46-116) 12/16/21 03:55 B-Natriuretic Peptide 681 pg/mL (0-79) H* 12/15/21 05:15 Total Protein 6.0 g/dL (6.4-8.2) L 12/16/21 03:55 Albumin 3.4 g/dL (3.4-5.0) 12/16/21 03:55 Globulin 2.6 g/dL (2.5-4.5) 12/16/21 03:55 Albumin/Globulin Ratio 1.3 Ratio (1.1-2.1) 12/16/21 03:55 Specimen Type Clean catch urine 12/14/21 22:22 Urine Color Straw (YELLOW) 12/14/21 22:22 Urine Appearance Clear (CLEAR) 12/14/21 22:22 Urine pH 6.0 (5.0 - 8.0) 12/14/21 22:22 Ur Specific [place] 1.015 (1.000-1.030) 12/14/21 22:22 Urine Protein Negative (NEGATIVE) 12/14/21 22:22 Urine Glucose (UA) Negative (NEGATIVE) 12/14/21 22:22 Urine Ketones Negative (NEGATIVE) 12/14/21 22:22 Urine Blood Negative (NEGATIVE) 12/14/21 22:22 Urine Nitrite Negative (NEGATIVE) 12/14/21 22:22 Urine Bilirubin Negative (NEGATIVE) 12/14/21 22:22 Urine Urobilinogen Normal (NORMAL) 12/14/21 22:22 Ur Leukocyte Esterase Negative (NEGATIVE) 12/14/21 22:22 SARS-CoV-2 (PCR) Negative (NEGATIVE) 12/14/21 20:47 Reason For Visit: DECOMP, CHF, AFIB,HTN, COPD Discharge Date Discharge Date: 12/16/21 Discharge Diagnosis All Active Problems (Updated 12/15/21 @ 11:15 by Sinan Montelongo) CHF exacerbation (Acute) Atrial fibrillation (Chronic) Benign essential HTN (Chronic) COPD (chronic obstructive pulmonary disease) with chronic bronchitis (Chronic) Plan of Treatment: Continue with present treatment and follow up plan. Pt is to keep follow up appointment as instructed and take medications as ordered. Discharge Medications Discharge Medications: No Known Drug Allergies Allergy (Verified 12/14/21 17:21) CONTINUE taking the following medications Anoro Ellipta 1 inh INHALATION DAILY 12/14/21 [History] Eliquis 5 mg PO BID 12/14/21 [History] clonidine HCl 0.1 mg PO DAILY PRN 12/14/21 [History] ergocalciferol (vitamin D2) 1,250 mcg PO WEEKLY 12/14/21 [History] losartan 100 mg PO DAILY 12/14/21 [History] sotalol 80 mg PO BID 12/14/21 [History] New Prescriptions furosemide 40 mg PO BID 30 Days #60 tab 12/16/21 [Rx] potassium chloride 10 meq PO DAILY 30 Days #30 tab 12/16/21 [Rx] Follow up and Referral Follow Up: 1 Week (PCP) Discharge Disposition Assessment: No acute distress noted at time of discharge. Discharge Disposition: Home Discharge Condition: Stable Discharge Plan Discharge Plan Hospital Course: Mr Patel is a 66y/o male with multiple comobidities including CHF, atrial fibrillation, HTN presented with worsening LE swelling and dyspnea. He was seen in the clinic for similar symptoms and advised to increase lasix. He continued to have worsening SOB and swelling so was admitted for further management. He was started on IV lasix, strict I/Os, telemetry and daily weights. ECHO was done which showed EF 38% with moderate decrease global wall motion. Patient remained on room air. His labs were monitored daily and electrolytes replaced as needed. His leg edema improved and his breathing was better. Patient is already established with cardiology. He was stable for discharge. He will follow up with PCP and cardiology as scheduled. Patient's lasix dose was increased and advised to monitor daily weight and blood pressure. Patient Disposition: 01 HOME, SELF-CARE Condition: Stable Health Concerns: Post Hospitalization: new medications and changes needed to prevent readmission or further decline. Pt educated and given instructions on all concerns. Care Plan Goals: Problem: Fluid Volume Overload Goal: Maintain/Improved Adequate hydration. Instructions: Follow provided instructions. Follow up with primary physician as directed. Contact primary care physician or report to the closest Emergency Room if condition worsens. Plan of Treatment: Continue with present treatment and follow up plan. Pt is to keep follow up appointment as instructed and take medications as ordered. Assessment: No acute distress noted at time of discharge. Prescriptions: New furosemide 40 mg tablet 40 mg PO BID 30 Days Qty: 60 RF: 1 potassium chloride 10 mEq tablet extended release 10 meq PO DAILY 30 Days Qty: 30 RF: 1 Continued clonidine HCl 0.1 mg tablet 0.1 mg PO DAILY PRN (Reason: Hypertension) RF: 0 sotalol 80 mg tablet 80 mg PO BID RF: 0 ergocalciferol (vitamin D2) 1,250 mcg (50,000 unit) capsule 1,250 mcg PO WEEKLY RF: 0 losartan 100 mg tablet 100 mg PO DAILY RF: 0 Eliquis 5 mg tablet 5 mg PO BID RF: 0 Anoro Ellipta 62.5-25 mcg/actuation blister with device 1 inh INHALATION DAILY RF: 0 Discontinued furosemide 20 mg tablet 20 mg PO BID RF: 0 Orders to Discharge Patient Discharge Orders: Discharge (Routine); Ordered 12/16/21 Ordered By: Tanna Trevino Follow ups/Referrals Follow ups/Referrals: David Zarate [Other] - 01/09/22 10:20 am (Cardiology) Sinan Montelongo [Primary Care Provider] - 12/22/21 2:50 pm Instructions Instructions: Heart Failure, Self Care, [id number], Chronic Obstructive Pulmonary Disease Exacerbation, Edema, [id number], Atrial Fibrillation, [id number] Activity Restrictions/Additional Instructions: Patient needs a f/u with cardiology in 1 week. Stand Alone Forms: Excuse From Work or School, Precautions for COVID19, [facility], Patient Portal, Social Distancing
--- NOTE | 2021-12-26 12:10 | PCM.PROG ---
Progress Note - Progress Note for Day of Date of Exam: 12/15/21 - Subjective Subjective: WAS ADMITTED OBSERVATION STATUS FOR CHF EXACERBATION, A-FIB, HTN, AND COPD WITH CHRONIC BRONCHITIS. TODAY, HE IS ALERT AND ORIENTED, LYING IN BED ON MORNING ROUNDS. HE COMPLAINS OF PERSISTENT SHORTNESS OF BREATH AND LOWER EXTREMITY SWELLING TODAY. HE DENIES SIGNIFICANT IMPROVEMENT SINCE ADMISSION. ON EXAMINTION, HEART IS REGULAR IN RATE AND RHYTHM. BILATERAL LUNGS NOTED WITH DIMINISHED LUNG SOUNDS THROUGHOUT. BLE NOTED WITH 3+ PITTING EDEMA. TRACE UPPER EXTREMITY EDEMA NOTED. HIS VITALS THIS MORNING ARE: 97.7-92-20-94%RA-117/77. LABS WERE OBTAINED. WBC 7.1, RBC 5.15, HGB 14.1, HCT 42.1, SODIUM 140, POTASSIUM 3.3, BUN 17, CREATININE 1.28, GLUCOSE 105, CALCIUM 8.0, AST 15, ALT 19, ALK PHOS 67, BNP 681, TOTAL PROTEIN 5.5, ALBUMIN 2.9. 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 Mediastinum and hilar regions show no masses or lymphadenopathy. Normal central vascularity. No pulmonary consolidation, masses, pleural fluid, or pneumothorax. No acute bony abnormality. ECHO OBTAINED TODAY AND REVEALED AN EJECTION FRACTION OF 38%. MODERATE DECREASE IN GLOBAL WALL MOTION. MODERATE AORTIC VALVE LEAFLET THICKENING. MILD TO MODERATE MITRAL REGURGITATION. MODERATE MITRAL VALVE LEAFLET THICKENING. RVSP 28 mmHg. HE IS CURRENTLY RECEIVING LASIX 40MG IV BID, ALBUMIN 25% IV DAILY, AND HIS HOME MEDICATIONS OF ELIQUIS, CATAPRES, VITAMIN D, COZAAR, AND BETAPACE WERE RESUMED. WE WILL ADD ALBUMIN 25% IV DAILY TODAY. OTHERWISE, WE WILL FOLLOW-UP WITH LABS AND CHEST XRAY AND CONTINUE TO MONITOR. TIME SPENT ON CLINICAL ASSESSMENT, REVIEWING LABS AND IMAGING, DECISION MAKING, AND DOCUMENTATION GREATER THAN 45 MINUTES. - Past Medical Family Social History Past Med/Fam/Surg Hx: No changes since H&P Allergies: Allergies No Known Drug Allergies Allergy (Verified 12/14/21 17:21) - Review of Systems ROS: No change since H&P - Vital Signs and I&O's Vital Signs: Temperature 97.9 F Pulse Rate [Left Radial] 98 Pulse Rate 114 Respiratory Rate 22 Blood Pressure [Left Arm] 116/77 Blood Pressure 152/105 O2 Sat by Pulse Oximetry 94 - Physical Exam Oriented: Normal Eyes: Normal Ear: Normal Nose: Normal Throat: Normal Respiratory: Generalized, Diminished Cardiovascular: Edema (BLE 3+ PITTING EDEMA ) : Normal Auscultation: Bowel Sounds: Normal Palpation: Normal Tenderness: Normal Skin: Normal Musculoskeletal: Normal Psychiatric: Normal Mood Description: Calm Affect: Normal Speech Pattern: Clear, Appropriate - Laboratory and Diagnostics Result Diagrams: 12/16/21 03:55 12/16/21 03:55 Labs: Laboratory WBC 7.8 X10^3/uL (3.6-10.0) 12/16/21 03:55 RBC 5.31 X10^6/uL (4.7-6.0) 12/16/21 03:55 Hgb 14.3 g/dL (13.5-18.0) 12/16/21 03:55 Hct 43.1 % (42.0-54.0) 12/16/21 03:55 MCV 81.3 fL (80.0-100.0) 12/16/21 03:55 MCH 26.9 pg (27.0-34.0) L 12/16/21 03:55 MCHC 33.1 g/dL (33.0-35.0) 12/16/21 03:55 RDW 17.1 % (11.6-16.5) H 12/16/21 03:55 Plt Count 228 X10^3/uL (150.0-450.0) 12/16/21 03:55 Plt Count Comment Adequate (ADEQUATE) 12/16/21 03:55 MPV 10.2 fL (7.4-11.0) 12/16/21 03:55 Neut % (Auto) 68.0 % (42.0-75.0) 12/16/21 03:55 Lymph % (Auto) 18.0 % (21.0-51.0) L 12/16/21 03:55 [place] % (Auto) 10.3 % (0.0-13.0) 12/16/21 03:55 Eos % (Auto) 3.5 % (0.9-2.9) H 12/16/21 03:55 Baso % (Auto) 0.2 % (0.2-1.0) 12/16/21 03:55 Neut # (Auto) 5.3 x10^3/uL (2.2-4.8) H 12/16/21 03:55 Lymph # (Auto) 1.4 X10^3/uL (1.3-2.9) 12/16/21 03:55 [place] # (Auto) 0.8 x10^3/uL (0.3-0.8) 12/16/21 03:55 Eos # (Auto) 0.3 x10^3/uL (0.0-0.2) H 12/16/21 03:55 Baso # (Auto) 0.0 X10^3/uL (0.0-0.1) 12/16/21 03:55 Absolute Nucleated RBC 0.1 /100WBC 12/16/21 03:55 Giant Platelets Rare 12/16/21 03:55 Plt Morphology Comment Abnormal (NORMAL) 12/16/21 03:55 RBC Morphology Normal (NORMAL) 12/16/21 03:55 Sodium 140 mmol/L (136-145) 12/16/21 03:55 Corrected Sodium TNP 12/16/21 03:55 Potassium 3.8 mmol/L (3.5-5.1) 12/16/21 03:55 Chloride 106 mmol/L (98-107) 12/16/21 03:55 Carbon Dioxide 26.1 mmol/L (21-32) 12/16/21 03:55 BUN 23 mg/dL (7-18) H 12/16/21 03:55 Creatinine 1.31 mg/dL (0.70-1.30) H 12/16/21 03:55 Est GFR (MDRD) Af Amer > 60 (>60) 12/16/21 03:55 Est GFR (MDRD) Non-Af 58 (>60) L 12/16/21 03:55 Glucose 110 mg/dL (65-99) H 12/16/21 03:55 Calcium 8.6 mg/dL (8.5-10.1) 12/16/21 03:55 Corrected Calcium TNP 12/16/21 03:55 Magnesium 2.2 mg/dL (1.7-2.9) 12/16/21 03:55 Total Bilirubin 0.70 mg/dL (0.2-1.0) 12/16/21 03:55 AST 14 Units/L (15-37) L 12/16/21 03:55 ALT 23 Units/L (12-78) 12/16/21 03:55 Alkaline Phosphatase 70 Units/L (46-116) 12/16/21 03:55 B-Natriuretic Peptide 681 pg/mL (0-79) H* 12/15/21 05:15 Total Protein 6.0 g/dL (6.4-8.2) L 12/16/21 03:55 Albumin 3.4 g/dL (3.4-5.0) 12/16/21 03:55 Globulin 2.6 g/dL (2.5-4.5) 12/16/21 03:55 Albumin/Globulin Ratio 1.3 Ratio (1.1-2.1) 12/16/21 03:55 Specimen Type Clean catch urine 12/14/21 22:22 Urine Color Straw (YELLOW) 12/14/21 22:22 Urine Appearance Clear (CLEAR) 12/14/21 22:22 Urine pH 6.0 (5.0 - 8.0) 12/14/21 22:22 Ur Specific [place] 1.015 (1.000-1.030) 12/14/21 22:22 Urine Protein Negative (NEGATIVE) 12/14/21 22:22 Urine Glucose (UA) Negative (NEGATIVE) 12/14/21 22:22 Urine Ketones Negative (NEGATIVE) 12/14/21 22:22 Urine Blood Negative (NEGATIVE) 12/14/21 22:22 Urine Nitrite Negative (NEGATIVE) 12/14/21 22:22 Urine Bilirubin Negative (NEGATIVE) 12/14/21 22:22 Urine Urobilinogen Normal (NORMAL) 12/14/21 22:22 Ur Leukocyte Esterase Negative (NEGATIVE) 12/14/21 22:22 SARS-CoV-2 (PCR) Negative (NEGATIVE) 12/14/21 20:47 - Plan (1) CHF exacerbation Status: Acute Qualifiers: Heart failure type: unspecified Qualified Code(s): I50.9 - Heart failure, unspecified Plan: ALBUMIN 25% IV DAILY, LASIX 40MG IV BID, ALBUMIN 25% IV DAILY, AND HIS HOME MEDICATIONS OF ELIQUIS, CATAPRES, VITAMIN D, COZAAR, AND BETAPACE WERE RESUMED. OBTAIN ECHO (2) Atrial fibrillation Status: Chronic Qualifiers: Atrial fibrillation type: longstanding persistent Qualified Code(s): I48.11 - Longstanding persistent atrial fibrillation (3) Benign essential HTN Status: Chronic (4) COPD (chronic obstructive pulmonary disease) with chronic bronchitis Status: Chronic
== END 2021-12-16 12:21 | disposition home or self-care (01) ==
LOC: MED/SURG 16:54 → ER 16:54 → MED/SURG 21:33
PROVIDERS: ADMIT Internal Medicine; ATTEND Internal Medicine